=== PATIENT | male | born 1955 | race Caucasian/White ===

== ENCOUNTER → 2020-01-08 15:53 | Outpatient (CLI) | payer BC, SELFPAY ==
--- NOTE | 2020-01-08 16:11 | XR_ITS ---
PROCEDURE: XR CHEST PORTABLE CLINICAL HISTORY: COVID TESTING, C/O COUGH COMPARISON: CR CXR CHEST(2 VIEWS-NOT PORTABLE) from 12/30/2015 FINDINGS: The cardiomediastinal silhouette and pulmonary vascularity are within normal limits. The lungs are clear without infiltrates, suspicious nodules, or pleural effusions. No acute bony abnormalities. IMPRESSION: No acute findings. Dictated by: Ronny Rhodes MD 01/08/2020 17:16 Ronny Rhodes MD in [facility] 01/08/2020 17:16
[2020-01-10 15:31] LABS: Covid-19 Nasal PCR Sendout Lex Not Detected
== END ==
PROVIDERS: PCP Nurse Practitioner; Visit Provider Nurse Practitioner
DX: Z20.828 Contact with and (suspected) exposure to other viral communicable diseases (principal); R05 Cough
CPT/HCPCS: 71045; U0004

== ENCOUNTER → 2020-04-02 17:22 | Outpatient (CLI) | payer BC, SELFPAY ==
--- NOTE | 2020-04-02 17:36 | XR_ITS ---
PROCEDURE: XR CHEST PORTABLE CLINICAL HISTORY: COVID COMPARISON: CR CXR CHEST(2 VIEWS-NOT PORTABLE) from 12/30/2015 CR XR CHEST PORTABLE from 01/08/2020 FINDINGS: Normal heart size. Left is somewhat prominent and may be related to pulmonary vessels as the patient is slightly rotated. The lungs are clear without infiltrates, suspicious nodules, or pleural effusions. No acute bony abnormalities. IMPRESSION: No acute findings. Dictated by: Ronny Rhodes MD 04/02/2020 18:22 Ronny Rhodes MD in [facility] 04/02/2020 18:22
[2020-04-02 18:14] LABS: Basophils # 0.1 K/mm3 (0-0.2); Eosinophils % 9.9 % (0.1-12.0); Hematocrit 50.1 % (42.0-52.0); Hemoglobin 16.9 g/dL (14.1-18.0); Lymphocytes # 2.5 K/mm3 (0.7-4.5); Lymphocytes % 24.5 % (10-50); Mean Corpuscular HGB Conc 33.7 g/dL (31.8-35.4); Mean Corpuscular Hemoglobin 31.8 pg (27.0-31.2); Mean Corpuscular Volume 94.4 fl (80-94); Monocytes # 0.5 K/mm3 (0.1-1.0); Monocytes % 5.2 % (1.7-9.3); Neutrophils # 6.1 K/mm3 (1.8-7.8); Neutrophils % 59.3 % (37.0-80.0); Platelet Count 263 K/mm3 (142-424); Red Blood Count 5.31 M/mm3 (4.60-6.20); Red Cell Distribution Width 13.5 % (11.5-17.5); White Blood Count 10.3 K/mm3 (4.8-10.8)
[2020-04-04 14:06] LABS: Covid-19 Nasal PCR Sendout Lex Not Detected
== END ==
PROVIDERS: PCP Nurse Practitioner; Visit Provider Nurse Practitioner
DX: Z03.818 Encounter for observation for suspected exposure to other biological agents ruled out (principal)
CPT/HCPCS: 36415; 71045; 85025; U0004

== ENCOUNTER → 2020-06-14 15:16 | Outpatient (CLI) | payer BC, SELFPAY ==
[2020-06-14 17:15] LABS: Basophils # 0.1 K/mm3 (0-0.2); Basophils % 0.8 % (0.1-2.0); Eosinophils # 0.3 K/mm3 (0.0-0.4); Eosinophils % 3.3 % (0.1-12.0); Hematocrit 43.6 % (42.0-52.0); Hemoglobin 14.4 g/dL (14.1-18.0); Lymphocytes # 2.4 K/mm3 (0.7-4.5); Lymphocytes % 24.6 % (10-50); Mean Corpuscular Hemoglobin 30.3 pg (27.0-31.2); Mean Corpuscular Volume 91.7 fl (80-94); Mean Platelet Volume 7.8 fl (7.4-10.4); Monocytes # 0.6 K/mm3 (0.1-1.0); Neutrophils # 6.4 K/mm3 (1.8-7.8); Neutrophils % 65.3 % (37.0-80.0); Platelet Count 310 K/mm3 (142-424); Red Blood Count 4.76 M/mm3 (4.60-6.20); Red Cell Distribution Width 12.6 % (11.5-17.5); White Blood Count 9.7 K/mm3 (4.8-10.8)
== END ==
PROVIDERS: PCP Nurse Practitioner; Visit Provider Nurse Practitioner
DX: Z20.822 Contact with and (suspected) exposure to COVID-19 (principal)
CPT/HCPCS: 36415; 85025; U0003

== ENCOUNTER 2020-11-11 04:07 | Observation (INO) | payer BC, SELFPAY ==
[2020-11-11] VITALS (13 sets, daily range): BP systolic 97–163; BP diastolic 45–93; PULSE 51–69; RESP 15–23; TEMP 36.3–36.7; O2SAT 91–97; BMI 40.6; BMI 40.8
--- NOTE | 2020-11-11 04:08 | XR_ITS ---
PROCEDURE INFORMATION: Exam: XR Chest Exam date and time: 11/11/2020 4:08 AM Age: 65 years old Clinical indication: Other: Weakness; Additional info: Dizzy TECHNIQUE: Imaging protocol: XR of the chest. Views: 1 view. COMPARISON: CR XR CHEST PORTABLE 04/02/2020 5:56 PM FINDINGS: Lungs: Unremarkable. No consolidation. Pleural spaces: Unremarkable. No pleural effusion. No pneumothorax. Heart/Mediastinum: Unremarkable. No cardiomegaly. Bones/joints: Unremarkable. IMPRESSION: No acute findings.
--- NOTE | 2020-11-11 04:16 | ECG_ITS ---
APPROVED REPORT Exam: Resting ECG HR:56 bpm ECG Measurements Heart Rate 56 AXES OR 138 P 16 QRSd 98 QRS 33 QT 462 T 55 QTc 445 Conclusion Sinus bradycardia with occasional premature ventricular complexes Otherwise normal ECG Electronically signed by : Cleveland Loyola, 11/11/2020 22:09:43
--- NOTE | 2020-11-11 04:34 | CT_ITS ---
PROCEDURE INFORMATION: Exam: CT Angiography Neck With Contrast Exam date and time: 11/11/2020 4:34 AM Age: 65 years old Clinical indication: Dizziness and giddiness; Patient HX: Weakness; Additional info: Dizzy TECHNIQUE: Imaging protocol: Computed tomography angiography of the neck with contrast. 3D rendering (Not supervised by radiologist): MIP and/or 3D reconstructed images were created by the technologist. Radiation optimization: All CT scans at this facility use at least one of these dose optimization techniques: automated exposure control; mA and/or kV adjustment per patient size (includes targeted exams where dose is matched to clinical indication); or iterative reconstruction. Contrast material: ISOVUE 370; Contrast volume: 100 ml; Contrast route: INTRAVENOUS (IV); COMPARISON: CT HEAD/BRAIN WO CON 11/11/2020 5:14 AM FINDINGS: Right common carotid artery: No high-grade stenosis, occluding thrombus, dissection or aneurysm. Right internal carotid artery: There are atherosclerotic calcifications within the right carotid bulb/proximal ICA resulting in just under 50% stenosis: There is no high-grade stenosis, occluding thrombus or dissection. Right external carotid artery: No high-grade stenosis, occluding thrombus, dissection or aneurysm. Left common carotid artery: No high-grade stenosis, occluding thrombus, dissection or aneurysm. Left internal carotid artery: There are atherosclerotic calcifications within the left carotid bulb/proximal ICA resulting in less than 50% stenosis: There is no high-grade stenosis, occluding thrombus or dissection. Left external carotid artery: No high-grade stenosis, occluding thrombus, dissection or aneurysm. 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 Above this, the more distal aspect does reconstitute from what appears to be collateral flow via the anterior inferior cerebellar artery. Left vertebral artery: The left vertebral artery is dominant and patent from its origin to the basilar artery. Aorta: There is the usual aortic arch configuration and no arch aneurysm or dissection. Soft tissues: Normal. No significant soft tissue swelling. Bones/joints: No acute fracture. Lungs: There is mild centrilobular emphysema and dependent atelectasis within the lung apices. IMPRESSION: 1. 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 Above this, the more distal aspect near the basilar artery reconstitutes via collateral flow from what appears to be the anterior inferior cerebellar artery. 2. Atherosclerotic calcifications within both carotid bulbs and proximal ICA's resulting in less than 50% stenosis. 3. Mild centrilobular emphysema and dependent atelectasis in the lung apices. REFERENCES: NASCET CRITERIA. The degree of internal carotid artery stenosis is based on NASCET criteria. Normal is no stenosis. Mild is less than 50% stenosis. Moderate is 50-69% stenosis. Severe is 70% to 99% stenosis. Total occlusion is no detectable patent lumen.
--- NOTE | 2020-11-11 04:34 | CT_ITS ---
PROCEDURE INFORMATION: Exam: CT Head Without Contrast Exam date and time: 11/11/2020 4:34 AM Age: 65 years old Clinical indication: Patient HX: General weakness; Additional info: Dizzy TECHNIQUE: Imaging protocol: Computed tomography of the head without contrast. Radiation optimization: All CT scans at this facility use at least one of these dose optimization techniques: automated exposure control; mA and/or kV adjustment per patient size (includes targeted exams where dose is matched to clinical indication); or iterative reconstruction. COMPARISON: No relevant prior studies available. FINDINGS: Brain: Normal. No hemorrhage. Unremarkable white matter. No mass effect. Cerebral ventricles: No ventriculomegaly. Paranasal sinuses: Diffuse ethmoidal sinusitis is noted. Mucoperiosteal thickening in the sphenoid and bilateral maxillary sinuses are also noted. Mastoid air cells: Visualized mastoid air cells are well aerated. Bones/joints: Unremarkable. No acute fracture. Soft tissues: Unremarkable. IMPRESSION: No acute intracranial process noted. Daniels sinusitis.
[2020-11-11 04:53] LABS: Alanine Aminotransferase 29 U/L (12-78); Albumin/Globulin Ratio 1.3 (1.1-1.8); Alkaline Phosphatase 101 U/L (38-126); Anion Gap 10.5 mEq/L (5-15); Aspartate Amino Transferase 27 U/L (17-59); Bilirubin,Total 0.5 mg/dl (0.2-1.3); Blood Urea Nitrogen 21 mg/dl (9-20); Calcium 8.6 mg/dl (8.4-10.2); Carbon Dioxide 26 mmol/L (22.0-30.0); Chloride 106 mmol/L (98-107); Creatinine Clearance Estimated 138 mL/min (50-200); Estimated Glomerular Filt Rate 75 ml/min (>60); GFR (African American) 90 ML/MIN (>60); Globulin 3.2 g/dL (1.3-3.2); Glucose 165 mg/dl (74-100); Potassium 3.5 mmoL/L (3.5-5.1); Sodium 139 mmol/L (136-145); Total Protein,Serum 7.2 g/dl (6.3-8.2)
[2020-11-11 04:54] LABS: Lactic Acid 1.5 mmol/L (0.7-2.1)
--- NOTE | 2020-11-11 04:55 | PC.NURSE ---
Pt returned from rad.
[2020-11-11 04:58] LABS: C-Reactive Protein 6.3 mg/L (0-4)
[2020-11-11 05:02] LABS: Basophils # 0.1 K/mm3 (0-0.2); Basophils % 0.6 % (0.1-2.0); Eosinophils # 0.2 K/mm3 (0.0-0.4); Eosinophils % 2.1 % (0.1-12.0); Hematocrit 40.7 % (42.0-52.0); Lymphocytes # 2.9 K/mm3 (0.7-4.5); Lymphocytes % 30.7 % (10-50); Mean Corpuscular HGB Conc 34.3 g/dL (31.8-35.4); Mean Corpuscular Hemoglobin 30.6 pg (27.0-31.2); Mean Corpuscular Volume 89.2 fl (80-94); Mean Platelet Volume 7.7 fl (7.4-10.4); Monocytes # 0.4 K/mm3 (0.1-1.0); Monocytes % 4.2 % (1.7-9.3); Neutrophils # 5.9 K/mm3 (1.8-7.8); Neutrophils % 62.3 % (37.0-80.0); Platelet Count 252 K/mm3 (142-424); Red Blood Count 4.56 M/mm3 (4.60-6.20); Red Cell Distribution Width 13.5 % (11.5-17.5); White Blood Count 9.4 K/mm3 (4.8-10.8)
--- NOTE | 2020-11-11 05:02 | CT_ITS ---
PROCEDURE INFORMATION: Exam: CT Angiography Head With Contrast, Arteriography Exam date and time: 11/11/2020 5:02 AM Age: 65 years old Clinical indication: Dizziness and giddiness and weakness; Patient HX: Dizziness, weakness; Additional info: Dizzy TECHNIQUE: Imaging protocol: Computed tomography angiography of the head with contrast. Exam focused on the arteries. 3D rendering (Not supervised by radiologist): MIP and/or 3D reconstructed images were created by the technologist. Radiation optimization: All CT scans at this facility use at least one of these dose optimization techniques: automated exposure control; mA and/or kV adjustment per patient size (includes targeted exams where dose is matched to clinical indication); or iterative reconstruction. Contrast material: ISOVUE 370; Contrast volume: 100 ml; Contrast route: INTRAVENOUS (IV); COMPARISON: CT HEAD/BRAIN WO CON 11/11/2020 5:14 AM FINDINGS: ANTERIOR CIRCULATION: Right internal carotid artery: There are atherosclerotic calcifications within the cavernous right internal carotid artery but no significant high-grade stenosis, thrombus, dissection or aneurysm. Right middle cerebral artery: No high-grade stenosis, occluding thrombus, dissection or aneurysm. Right anterior cerebral artery: No high-grade stenosis, occluding thrombus, dissection or aneurysm. Left internal carotid artery: There are atherosclerotic calcifications within the cavernous left internal carotid artery but no high-grade stenosis, occluding thrombus or dissection. Left middle cerebral artery: No high-grade stenosis, occluding thrombus, dissection or aneurysm. Left anterior cerebral artery: No high-grade stenosis, occluding thrombus, dissection or aneurysm. POSTERIOR CIRCULATION: Right vertebral artery: No high-grade stenosis, occluding thrombus, dissection or aneurysm. Left vertebral artery: No high-grade stenosis, occluding thrombus, dissection or aneurysm. Basilar artery: No high-grade stenosis, occluding thrombus, dissection or aneurysm. Right posterior cerebral artery: No high-grade stenosis, occluding thrombus, dissection or aneurysm. Left posterior cerebral artery: No high-grade stenosis, occluding thrombus, dissection or aneurysm. Right posterior communicating artery: There is a patent right PCOM. No high-grade stenosis, occluding thrombus dissection or aneurysm. Left posterior communicating artery: There is a patent left PCOM. No high-grade stenosis, occluding thrombus, dissection or aneurysm. Brain: No definite mass, mass effect, or midline shift. Cerebral ventricles: No ventriculomegaly. Bones/joints: Unremarkable. No acute fracture. Soft tissues: Unremarkable. Paranasal sinuses: There is mucosal thickening within the ethmoid air cells, sphenoid sinuses and maxillary sinuses. There is a large retention cyst versus polyp in the floor of the left maxillary sinus. IMPRESSION: 1. No high-grade stenosis, occluding thrombus, dissection or aneurysm identified within the intracranial circulation. 2. Sinusitis.
[2020-11-11 05:12] LABS: Procalcitonin 0.091 ng/mL (0.0-2.0)
[2020-11-11 05:22] LABS: Troponin I < 0.01 ng/ml (0.00-0.034)
--- NOTE | 2020-11-11 05:22 | PC.NURSE ---
pt with rad.
[2020-11-11 05:28] LABS: Erythrocyte Sedimentation Rate 26 mm/hr (0-20)
[2020-11-11 06:21] LABS: Microscopic, Urine URINE MICROSCOPIC (MICROSCOPIC)
[2020-11-11 06:22] LABS: Appearance,Urine CLEAR (Clear); Bilirubin,Urine Negative (Negative); Blood, Urine TRACE-L (Negative); Color,Urine YELLOW (Yellow); Glucose,Urine (UA) Negative (Negative); Ketones,Urine Negative (Negative); Leukocyte Esterase,Urine Negative (Negative); Nitrate,Urine Negative (Negative); Protein,Urine 2+ (Negative); Specific Gravity, Urine >= 1.030 (1.005-1.030); Urobilinogen,Urine 0.2 EU/dl (0.2)
[2020-11-11 06:29] LABS: Bacteria,Urine Trace /lpf; Mucus,Urine 1+ /lpf; Squamous Epithelial Cell,Urine Occasional #/hpf (0-5); WBC,Urine Occasional #/hpf (0-3)
--- NOTE | 2020-11-11 06:36 | HMH.EDDIZZ ---
ED Disposition Clinical Impression: Vertigo, Bradycardia Acute sinusitis Qualifiers: Sinusitis location: unspecified location Recurrence: not specified as recurrent Qualified Code(s): J01.90 - Acute sinusitis, unspecified Disposition: Admitted as Observation Condition on Discharge: Good - Critical Care Critical Care Time: No Attestation: On 11/11/20, the high probability of a clinically significant, sudden or life threatening deterioration of the following system(s) required my full and direct attention, intervention and personal management. The time I documented below is in addition to time spent performing reported procedures but includes the following listed in this critical care notation. Medical Decision Making - Medical Records Medical records reviewed: Yes: I reviewed the patient's medical records. - Александр Inquiry Pt receiving controlled substance: No Vital Signs: 11/11/20 04:07 11/11/20 04:30 11/11/20 05:00 Temperature 97.4 F L Temperature Source Oral Pulse Rate 57 L 60 Pulse Rate [Right Radial] 58 L Respiratory Rate 21 16 17 Blood Pressure 97/45 L 114/48 L Blood Pressure [Right Arm] 139/77 Blood Pressure Mean Blood Pressure Mean [Right Arm] 97 Blood Pressure Source [Right Arm] Automatic Cuff Blood Pressure Position [Right Arm] Sitting 02 Sat by Pulse Oximetry 91 L 92 L 91 L Oxygen Delivery Method Room Air 11/11/20 05:30 11/11/20 05:32 Temperature Temperature Source Pulse Rate 51 L 51 L Pulse Rate [Right Radial] Respiratory Rate 16 18 Blood Pressure 141/68 H 141/68 H Blood Pressure [Right Arm] Blood Pressure Mean 92 Blood Pressure Mean [Right Arm] Blood Pressure Source [Right Arm] Blood Pressure Position [Right Arm] 02 Sat by Pulse Oximetry 93 L 93 L Oxygen Delivery Method - Lab Data Lab results reviewed: Yes: I reviewed the patient's lab results. Lab Results 11/11/20 04:12: WBC 9.4, RBC 4.56 L, Hgb 14.0 L, Hct 40.7 L, MCV 89.2, MCH 30.6, MCHC 34.3, RDW 13.5, Plt Count 252, MPV 7.7, Neut % (Auto) 62.3, Lymph % (Auto) 30.7, [place] % (Auto) 4.2, Eos % (Auto) 2.1, Baso % (Auto) 0.6, Neut # (Auto) 5.9, Lymph # (Auto) 2.9, [place] # (Auto) 0.4, Eos # (Auto) 0.2, Baso # (Auto) 0.1 11/11/20 04:12: Sodium 139, Potassium 3.5, Chloride 106, Carbon Dioxide 26, Anion Gap 10.5, BUN 21 H, Creatinine 1.00, Estimated Creat Clear 138, Estimated GFR 75, Est GFR ( Amer) 90, Glucose 165 H, Calcium 8.6, Total Bilirubin 0.5, AST 27, ALT 29, Alkaline Phosphatase 101, Troponin I < 0.01, C-Reactive Protein 6.3 H, Total Protein 7.2, Albumin 4.0, Globulin 3.2, Albumin/Globulin Ratio 1.3 11/11/20 04:12: ESR 26 H 11/11/20 04:12: Lactate 1.5 11/11/20 04:12: Procalcitonin 0.091 11/11/20 06:18: Urine Color Yellow, Urine Appearance Clear, Urine pH 6.0, Ur Specific Elizabeth >= 1.030, Urine Protein 2+, Urine Glucose (UA) Negative, Urine Ketones Negative, Urine Blood Trace-l, Urine Nitrate Negative, Urine Bilirubin Negative, Urine Urobilinogen 0.2, Ur Leukocyte Esterase Negative, Urine WBC Occasional, Ur Squamous Epith Cells Occasional, Urine Bacteria Trace, Urine Mucus 1+ 11/11/20 06:53: SARS-CoV-2 (PCR) Not detected, Influenza A Untype (PCR) Not detected, Influenza Type B (PCR) Not detected Result diagrams: 11/11/20 04:12 11/11/20 04:12 Orders (Tests/Meds): ED MEDICATIONS Discontinued Medications Generic Name Dose Route Start Last Admin Trade Name Freq PRN Reason Stop Dose Admin Sodium Chloride 1,000 mls @ 999 mls/hr 11/11/20 04:45 Sod Chlor 0.9% 1000ml Bag IV 11/11/20 05:45 .Q1H1M HERSON Iopamidol 100 ml 11/11/20 06:19 11/11/20 06:20 Iopamidol-370 (76%);100ml Bottle IV 11/11/20 06:20 100 ml ONCE ONE Administration Sodium Chloride 50 ml 11/11/20 06:19 11/11/20 06:19 0.9 % Sodium Chloride 50 Ml Vial IV 11/11/20 06:20 50 ml ONCE ONE Administration Sodium Chloride 10 ml 11/11/20 06:19 11/11/20 06:19 Sodium Chloride 0.9% 10ml Syr (Rad
[2020-11-11 06:59] LABS: Coronavirus 19, PCR Not Detected (NotDetected); Influenza A, PCR Not Detected (NotDetected); Influenza B, PCR Not Detected (NotDetected)
--- NOTE | 2020-11-11 07:40 | PC.NURSE ---
notified care management of admission, spoke with j carlos
--- NOTE | 2020-11-11 08:15 | PC.NURSE ---
miladys nguyenn at [facility]
--- NOTE | 2020-11-11 08:46 | PC.NURSE ---
Report given to Angelica HOWELL
--- NOTE | 2020-11-11 08:49 | HMH.PHAINT ---
MEDICATION RECONCILIATION COMPLETED USING LIST FROM MD OFFICE AND EXTERNAL PHARMACY FILL HX
[2020-11-11 09:02] LABS: Troponin I < 0.01 ng/ml (0.00-0.034)
--- NOTE | 2020-11-11 09:07 | HMH.HP ---
*Admission Date: 11/11/20 *Chief complaint: dizziness *History of present illness: Mr. Mckeon is a 65-year-old male patient with a history of CVA in 2013, hypertension, allergic rhinitis, hiatal hernia, vitamin B12 deficiency, and previous tobacco use disorder, and COPD who presented to [facility] emergency room via EMS after experiencing dizziness associated with nausea and vomiting at home. Patient states he was awake at 2 AM at which time he became dizzy. He states he has these spells infrequently. They normally last 2 to 3 minutes. This event continued and thus he called EMS. When ambulating to let them into his home he experienced nausea and did vomit. He denies chest pain and shortness of breath. In the emergency room he received a liter of IV fluids. He also received 4 mg of Zofran in route to the hospital. He had a CTA of the head with the following results: IMPRESSION: 1. 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 Above this, the more distal aspect near the basilar artery reconstitutes via collateral flow from what appears to be the anterior inferior cerebellar artery. 2. Atherosclerotic calcifications within both carotid bulbs and proximal ICA's resulting in less than 50% stenosis. 3. Mild centrilobular emphysema and dependent atelectasis in the lung apices. Chest x-ray showed no acute findings. Troponin I is negative x2. Electrolytes are normal and kidney function is good. At the time of this exam patient is lying on his side comfortably. He states as long as he lies down he is not dizzy. He turns from side to side on the stretcher without dizziness as well. Patient was noted to have a slow heart rate with dizziness and will thus be admitted with a cardiology consult. [facility] History Medical History: Reports:: Chronic Obstructive Pulmonary Disease (COPD), Cerebrovascular Accident Denies:: Atherosclerotic Heart Disease, Atrial Fibrillation *Have you ever received a pneumonia vaccine?: No *Have you received a flu vaccine this season?: No Other Medical History: Reports: Sinus Problems Other Surgeries: Yes: Sinus Surgery - *Social History Smoking Status: Former smoker Alcohol Intake: never *Occupational Status:: employed Housing: house Household Members: none *Travel in the last 8 weeks: None Family Hx:: Other Comment: His father at the age of 62 and had emphysema. His mother at the age of 80. Review of Systems - Constitutional Denies fever(s), Denies lack of energy - Eyes Reports change in vision (He describes seeing double with these dizzy episodes) - ENT Reports dizziness, Reports nasal congestion (On the left side), Denies ear pain, Denies nosebleed, Denies nasal discharge - *Cardiovascular Denies chest pain, Denies shortness of breath, Denies leg swelling - *Respiratory Denies chest congestion, Denies cough, Denies shortness of breath - *Gastrointestinal Reports nausea, Reports vomiting, Denies abdominal pain, Denies bright, red blood in stools, Denies black, tarry stools - *Genitourinary Denies difficulty urinating - *Musculoskeletal Denies abnormal walking - *Neurologic Reports dizziness, Denies abnormal speech, Denies localized weakness, Denies headache(s), Denies seizure-like activity Meds Home Medications Medication Instructions Recorded Confirmed Type Amlodipine Besylate [Amlodipine 10 mg PO DAILY 11/11/20 11/11/20 History 10mg Tab] Lisinopril/Hydrochlorothiazide 1 tab PO DAILY 11/11/20 11/11/20 History [Lisinopril-Hctz 20-25 mg Tab*] Allergies Allergy/AdvReac Type Severity Reaction Status Date / Time No Known Allergies Allergy Unverified 11/11/20 09:21 Exam Vital signs and Labs for Last 24 Hours: Temp Pulse Resp BP Pulse Ox 97.4 F L 59 L 19 153/78 H 95 11/11/20 08:58 11/11/20 08:58 11/11/20 08:58 11/11/20 08:58 11/11/20
--- NOTE | 2020-11-11 09:16 | CA_ITS ---
APPROVED REPORT EXAM: Comprehensive 2D, Doppler, and color-flow Echocardiogram Brancher: Amelie Girard, RCS, RVS Ht: 6 ft 0 in Wt: 301lbs BSA: 2.53 BP: 000/00 mmHg Indications: Murmur, HTN, Bradycardia, Hx-CVA-2012, ex-smoker, COPD 2D Dimensions IVSd 1.04 cm M: 0.6-1.2 LVEF (Visual) 57.80 % PWd 0.99 cm M: 0.6 - 1.2 LA Volume 123.00 mL LVDd 5.49 cm M: 4.2 - 5.9 LA Volume Index 48.61 mL/m2 (M/F) 16-34 LVDs 3.80 cm M: 2.5 - 4.0 Aortic Root 3.42 cm M: 3.1 - 3.7 Left Atrium 4.53 cm M: 3.0 - 4.0 LVOT 2.00 cm (M/F) 1.5-2.5 M-Mode Dimensions LA Diam 4.57 cm (1.9-4.0) Ao Diam 3.93 cm (2.0-3.7) EPSs 0.57 cm TAPSE 3.01 (<1.7) LV Diastology E Decel Time 167.00 (160-240 msec) E/A Ratio 1.42 MED E' 11.10 (< 7 cm/sec) MED A' 11.40 cm/s E'/MED E' Ratio 7.42 (>14) LAT E' 10.00 (<10 cm/sec) LAT A' 10.00 cm/s E/LAT E' Ratio 8.24 (>14) Aortic Valve LVOT Max 107.00 (70-110 cm/s) LVOT VTI 26.04 cm AoV Peak Marshall. 290.00 (50-130 cm/s) AI PHT 362.00 ms AO Peak GR. 33.70 mmHg AO Mean GR. 19.20 (<5 mmHg) AO VTI 69.65 (18-25 cm) MARGARITO (VTI) 1.20 (2.5-4.5 cm2) Mitral Valve MV A Velocity 58.00 (40-130 cm/s) E/A Ratio 1.42 MV Decel. Time 167.00 (160-240 ms) Tricuspid Valve TR P. Velocity 258.00 cm/s RAP Estimate 10.00 mmHg RVSP 36.50 mmHg Left Ventricle Left atrium is mildly enlarged, left ventricle is normal size, mild concentric left ventricular hypertrophy, visually estimated ejection fraction 55% with no regional wall motion abnormality. Diastolic parameters are inconclusive. Right Ventricle Right atrium and right ventricle are mildly enlarged with normal contractility. Aortic Valve Aortic valve is thickened and calcified with restriction in the leaflet mobility, the mean gradient across valve is 20 mmHg, valve area is 1.41 cm, represents mild aortic stenosis, there is no significant aortic insufficiency. Mitral Valve Mitral valve leaflets are minimally thickened, there is mild mitral regurgitation. Tricuspid Valve Tricuspid grossly normal, there is mild tricuspid regurgitation, tricuspid regurgitation jet velocity is inadequate for calculation of the right ventricular systolic pressure. Pulmonic Valve Pulmonic valve is poorly visualized. Great Vessels Aortic root is normal size. Pericardium No significant pericardial effusion noted. Conclusion 1. Technically difficult study, mild biatrial enlargement, normal left ventricular size, mild concentric left ventricular hypertrophy, visually estimated ejection fraction 55% with no regional wall motion abnormality, diastolic parameters are inconclusive. 2. Thickened and calcified aortic valve with mean gradient across valve of 20 mmHg, valve area is 1.41 cm, represents mild aortic stenosis, there is no significant aortic insufficiency. 3. Mild mitral and tricuspid regurgitation. 4. No significant pericardial effusion noted. Electronically signed by : Rony Livingston, 11/11/2020 21:53:49
--- NOTE | 2020-11-11 09:18 | P.CONPHA_ITS ---
[facility] Pharmacy VTE Monitoring - Patient Demographics Admission date: 11/11/20 Report Date: 11/11/20 Time: 09:18 Allergies/Adverse Reactions: Patient Allergies NO KNOWN ALLERGIES - NKA Allergy (Mild, Uncoded 04/13/17 15:39) Height: 1.83 m Weight: 136.786 kg Patient Problems: Current Active Problems Vertigo (Acute) Acute sinusitis (Acute) Bradycardia (Acute) - VTE Risk Labs: VTE Related Lab Results Hgb 14.0 g/dL (14.1-18.0) L 11/11/20 04:12 Hct 40.7 % (42.0-52.0) L 11/11/20 04:12 Plt Count 252 K/mm3 (142-424) 11/11/20 04:12 BUN 21 mg/dl (9-20) H 11/11/20 04:12 Creatinine 1.00 mg/dl (0.66-1.25) 11/11/20 04:12 Estimated Creat Clear 138 mL/min (50-200) 11/11/20 04:12 - Prophylaxis VTE Prophylaxis Ordered?: Yes Types of VTE Prophylaxis: TEDS Knee High Location of Applied Device: Bilateral Lower Extremeties
[2020-11-11 11:03] LABS: Troponin I < 0.01 ng/ml (0.00-0.034)
--- NOTE | 2020-11-11 12:43 | HMH.CNCARD ---
History of Present Illness Consult date: 11/11/20 Requesting physician: Tod Burr Chief complaint: dizziness History of present illness: This is a 65-year-old white gentleman who was admitted to the hospital with dizziness. The patient states that he woke up around 2 AM this morning with profound dizziness. He states that his dizziness was really severe and usually resolves in about 2 to 3 minutes but this persisted. He states that he called EMS because of the persistent dizziness. When he got up to walk to the door to let EMS and the patient had sudden onset of nausea and vomiting. He states that the ambulance ride made him even more nauseous and made him vomit even more. He states that when he lies flat the dizziness resolved. He denies any chest pain or pressure. He denies any shortness of breath or edema. He denies any fever, chills, diarrhea, PND or orthopnea. The patient has ruled out for an ND. He states that he had an episode like this approximately 2 or 3 months ago but the dizziness only lasted about 2 or 3 minutes and then resolved and never recurred again. The patient states that now his dizziness has completely resolved. He is able to walk to the bathroom without being dizzy and without having any nausea or vomiting. When the patient arrived at the hospital, blood pressure was on the lower side with a systolic blood pressure in the 90s. His heart rate was in the 50s. [facility] History I have reviewed the patient's past medical history: Yes Medical History: Reports:: Chronic Obstructive Pulmonary Disease (COPD), Cerebrovascular Accident, Hypertension Denies:: Atherosclerotic Heart Disease, Atrial Fibrillation, Diabetes Mellitus Type 1, Diabetes Mellitus Type 2 *Have you ever received a pneumonia vaccine?: No *Have you received a flu vaccine this season?: Yes Other Medical History: Reports: Sinus Problems Other Surgeries: Yes: Sinus Surgery - *Social History Smoking Status: Former smoker Alcohol Intake: never *Occupational Status:: employed Housing: house Household Members: none *Travel in the last 8 weeks: None Family Hx:: Other Meds Home Medications Medication Instructions Recorded Confirmed Type Amlodipine Besylate [Amlodipine 10 mg PO DAILY 11/11/20 11/11/20 History 10mg Tab] Lisinopril/Hydrochlorothiazide 1 tab PO DAILY 11/11/20 11/11/20 History [Lisinopril-Hctz 20-25 mg Tab*] Allergies Allergy/AdvReac Type Severity Reaction Status Date / Time No Known Allergies Allergy Unverified 11/11/20 09:21 Exam Vital signs and Labs for Last 24 Hours: Temp Pulse Resp BP Pulse Ox 97.9 F 56 L 18 154/63 H 97 11/11/20 09:07 11/11/20 09:07 11/11/20 09:07 11/11/20 09:07 11/11/20 09:07 Laboratory Results - last 24 hr 11/11/20 04:12: WBC 9.4, RBC 4.56 L, Hgb 14.0 L, Hct 40.7 L, MCV 89.2, MCH 30.6, MCHC 34.3, RDW 13.5, Plt Count 252, MPV 7.7, Neut % (Auto) 62.3, Lymph % (Auto) 30.7, [place] % (Auto) 4.2, Eos % (Auto) 2.1, Baso % (Auto) 0.6, Neut # (Auto) 5.9, Lymph # (Auto) 2.9, [place] # (Auto) 0.4, Eos # (Auto) 0.2, Baso # (Auto) 0.1 11/11/20 04:12: Sodium 139, Potassium 3.5, Chloride 106, Carbon Dioxide 26, Anion Gap 10.5, BUN 21 H, Creatinine 1.00, Estimated Creat Clear 138, Estimated GFR 75, Est GFR ( Amer) 90, Glucose 165 H, Calcium 8.6, Total Bilirubin 0.5, AST 27, ALT 29, Alkaline Phosphatase 101, Troponin I < 0.01, C-Reactive Protein 6.3 H, Total Protein 7.2, Albumin 4.0, Globulin 3.2, Albumin/Globulin Ratio 1.3 11/11/20 04:12: ESR 26 H 11/11/20 04:12: Lactate 1.5 11/11/20 04:12: Procalcitonin 0.091 11/11/20 06:18: Urine Color Yellow, Urine Appearance Clear, Urine pH 6.0, Ur Specific [place] >= 1.030, Urine Protein 2+, Urine Glucose (UA) Negative, Urine Ketones Negative, Urine Blood Trace-l, Urine Nitrate Negative, Urine Bilirubin Negative, Urine Urobilinogen 0.2, Ur Leukocyte Esterase Negative, Urine WBC Occasional, Ur Squamous Epith Cells Occasional, Urine Bacteria Trace, Urine M
--- NOTE | 2020-11-11 16:33 | PC.NURSE ---
Zakia Matias APRN notified of pt refusing to do MRI.
--- NOTE | 2020-11-11 17:12 | HMH.ACPN2 ---
Internal Medicine - PN: Subj *Date: 11/11/20 *Time: 17:12 Interval history: Upon review of the CTA showing problems with the vertebrobasilar system, I started Eliquis. See the cardiology note which also points in this direction. Exam Vital signs and Labs for Last 24 Hours: Temp Pulse Resp BP Pulse Ox 98.1 F 59 L 20 120/66 94 L 11/11/20 16:00 11/11/20 16:00 11/11/20 16:00 11/11/20 16:00 11/11/20 16:00 Laboratory Results - last 24 hr 11/11/20 04:12: WBC 9.4, RBC 4.56 L, Hgb 14.0 L, Hct 40.7 L, MCV 89.2, MCH 30.6, MCHC 34.3, RDW 13.5, Plt Count 252, MPV 7.7, Neut % (Auto) 62.3, Lymph % (Auto) 30.7, [place] % (Auto) 4.2, Eos % (Auto) 2.1, Baso % (Auto) 0.6, Neut # (Auto) 5.9, Lymph # (Auto) 2.9, [place] # (Auto) 0.4, Eos # (Auto) 0.2, Baso # (Auto) 0.1 11/11/20 04:12: Sodium 139, Potassium 3.5, Chloride 106, Carbon Dioxide 26, Anion Gap 10.5, BUN 21 H, Creatinine 1.00, Estimated Creat Clear 138, Estimated GFR 75, Est GFR ( Amer) 90, Glucose 165 H, Calcium 8.6, Total Bilirubin 0.5, AST 27, ALT 29, Alkaline Phosphatase 101, Troponin I < 0.01, C-Reactive Protein 6.3 H, Total Protein 7.2, Albumin 4.0, Globulin 3.2, Albumin/Globulin Ratio 1.3 11/11/20 04:12: ESR 26 H 11/11/20 04:12: Lactate 1.5 11/11/20 04:12: Procalcitonin 0.091 11/11/20 06:18: Urine Color Yellow, Urine Appearance Clear, Urine pH 6.0, Ur Specific [place] >= 1.030, Urine Protein 2+, Urine Glucose (UA) Negative, Urine Ketones Negative, Urine Blood Trace-l, Urine Nitrate Negative, Urine Bilirubin Negative, Urine Urobilinogen 0.2, Ur Leukocyte Esterase Negative, Urine WBC Occasional, Ur Squamous Epith Cells Occasional, Urine Bacteria Trace, Urine Mucus 1+ 11/11/20 06:53: SARS-CoV-2 (PCR) Not detected, Influenza A Untype (PCR) Not detected, Influenza Type B (PCR) Not detected 11/11/20 08:02: Troponin I < 0.01 11/11/20 10:20: Troponin I < 0.01 I & O for Last 24 hours: Intake & Output 11/09/20 11/10/20 11/11/20 11/12/20 11:59 11:59 11:59 11:59 Intake Total 240 / 240 Output Total 600 / 600 Balance -360 / -360 Weight 301 lb 9 oz Assessment and Plan (1) Dizziness Status: Acute Category: Medical Code(s): R42 - Dizziness and giddiness (2) Vertebrobasilar insufficiency Status: Acute Category: Medical Code(s): G45.0 - Vertebro-basilar artery syndrome (3) Chronic panethmoidal sinusitis Status: Chronic Category: Medical Code(s): J32.2 - Chronic ethmoidal sinusitis (4) COPD (chronic obstructive pulmonary disease) Status: Acute Category: Medical Code(s): J44.9 - Chronic obstructive pulmonary disease, unspecified (5) History of CVA (cerebrovascular accident) without residual deficits Status: Acute Category: Medical Code(s): Z86.73 - Personal history of transient ischemic attack (TIA), and cerebral infarction without residual deficits (6) Bradycardia Status: Acute Category: Medical Code(s): R00.1 - Bradycardia, unspecified (7) Vertigo Status: Acute Category: Medical Code(s): R42 - Dizziness and giddiness (8) Nausea and vomiting Status: Acute Category: Medical Code(s): R11.2 - Nausea with vomiting, unspecified - Assessment and plan all Dx Assessment and Plan for all problems:: Eliquis initiated. After lipids are obtained in the morning we should start a statin.
--- NOTE | 2020-11-11 17:29 | PC.NURSE ---
Pt has slept most of this shift. Pt has had no c/o pain at all. Per last note, pt did refuse MRI d/t being claustrophobic. Pt stated they even gave me something for my nerves last time and it didn't help. . No other acute changes or complaints at this time, will continue to monitor.
--- NOTE | 2020-11-12 03:49 | PC.NURSE ---
PATIENT HAS BEEN PLEASANT AND HAS BEEN ABLE TO SLEEP COMFORTABLY THROUGHOUT THIS SHIFT. VSS. PT IS A&O X4. LUNGS REMAIN CTAB. CALL MILIAN WITHIN REACH. WILL CONTINUE TO MONITOR.
[2020-11-12 04:00] VITALS: BP 153/80; PULSE 58; RESP 18; TEMP 36.6; O2SAT 94
[2020-11-12 05:22] VITALS: BMI 40.2
[2020-11-12 07:16] LABS: Basophils # 0.1 K/mm3 (0-0.2); Basophils % 0.6 % (0.1-2.0); Eosinophils # 0.2 K/mm3 (0.0-0.4); Hematocrit 41.1 % (42.0-52.0); Hemoglobin 14.3 g/dL (14.1-18.0); Lymphocytes # 2.7 K/mm3 (0.7-4.5); Mean Corpuscular HGB Conc 34.9 g/dL (31.8-35.4); Mean Corpuscular Hemoglobin 30.5 pg (27.0-31.2); Mean Corpuscular Volume 87.5 fl (80-94); Monocytes # 0.5 K/mm3 (0.1-1.0); Neutrophils # 5.6 K/mm3 (1.8-7.8); Neutrophils % 62.4 % (37.0-80.0); Platelet Count 260 K/mm3 (142-424); Red Cell Distribution Width 13.6 % (11.5-17.5)
[2020-11-12 07:30] VITALS: BP 157/69; PULSE 66; RESP 18; TEMP 36.6; O2SAT 98
[2020-11-12 07:48] LABS: Anion Gap 9.1 mEq/L (5-15); Blood Urea Nitrogen 13 mg/dl (9-20); Calcium 8.8 mg/dl (8.4-10.2); Carbon Dioxide 30 mmol/L (22.0-30.0); Chloride 103 mmol/L (98-107); Creatinine Clearance Estimated 137 mL/min (50-200); Estimated Glomerular Filt Rate 75 ml/min (>60); GFR (African American) 90 ML/MIN (>60); Glucose 118 mg/dl (74-100); Potassium 4.1 mmoL/L (3.5-5.1); Sodium 138 mmol/L (136-145)
--- NOTE | 2020-11-12 08:20 | HMH.ACPN2 ---
Internal Medicine - PN: Subj *Date: 11/12/20 *Time: 08:20 Interval history: Patient states he feels 100% better and is ready to go home. He was to have an MRA of the head and the neck yesterday which she reviewed fused. He states he could not stay in a closed environment with MRI even with medication. He did sleep well. He has ambulated in the room without any dizziness. His vision is normal today. He is voiding QS and bowels have moved. CBC is normal today blood chemistries show normal electrolytes and renal function. Troponin I has been normal x3. Exam Vital signs and Labs for Last 24 Hours: Temp Pulse Resp BP Pulse Ox 98 F 66 18 157/69 H 98 11/12/20 07:30 11/12/20 07:30 11/12/20 07:30 11/12/20 07:30 11/12/20 07:30 Laboratory Results - last 24 hr 11/11/20 08:02: Troponin I < 0.01 11/11/20 10:20: Troponin I < 0.01 11/12/20 06:50: WBC 9.0, RBC 4.70, Hgb 14.3, Hct 41.1 L, MCV 87.5, MCH 30.5, MCHC 34.9, RDW 13.6, Plt Count 260, MPV 8.0, Neut % (Auto) 62.4, Lymph % (Auto) 30.0, [place] % (Auto) 5.0, Eos % (Auto) 2.0, Baso % (Auto) 0.6, Neut # (Auto) 5.6, Lymph # (Auto) 2.7, [place] # (Auto) 0.5, Eos # (Auto) 0.2, Baso # (Auto) 0.1 11/12/20 06:50: Sodium 138, Potassium 4.1, Chloride 103, Carbon Dioxide 30, Anion Gap 9.1, BUN 13 D, Creatinine 1.00, Estimated Creat Clear 137, Estimated GFR 75, Est GFR ( Amer) 90, Glucose 118 H, Calcium 8.8, Magnesium 2.0 I & O for Last 24 hours: Intake & Output 11/09/20 11/10/20 11/11/20 11/12/20 11:59 11:59 11:59 11:59 Intake Total 876 / 876 Output Total 600 / 600 Balance 276 / 276 Weight 301 lb 9 oz 297 lb 0.4 oz - Constitutional no acute distress - *Routine Respiratory Exam Present: CTA bilaterally (Anteriorly and posteriorly) - *Routine Cardiovascular Exam Present: RRR - *Routine Abdominal Exam Present: soft, normoactive bowel sounds, obese. Absent: tenderness - *Routine Extremities Exam Present: full ROM, pulses intact. Absent: edema, calf tenderness - *Routine Neurological Exam Present: alert, oriented X3 Assessment and Plan (1) Dizziness Status: Acute Category: Medical Code(s): R42 - Dizziness and giddiness (2) Vertebrobasilar insufficiency Status: Acute Category: Medical Code(s): G45.0 - Vertebro-basilar artery syndrome (3) Chronic panethmoidal sinusitis Status: Chronic Category: Medical Code(s): J32.2 - Chronic ethmoidal sinusitis (4) COPD (chronic obstructive pulmonary disease) Status: Acute Category: Medical Code(s): J44.9 - Chronic obstructive pulmonary disease, unspecified (5) History of CVA (cerebrovascular accident) without residual deficits Status: Acute Category: Medical Code(s): Z86.73 - Personal history of transient ischemic attack (TIA), and cerebral infarction without residual deficits (6) Bradycardia Status: Acute Category: Medical Code(s): R00.1 - Bradycardia, unspecified (7) Vertigo Status: Acute Category: Medical Code(s): R42 - Dizziness and giddiness (8) Nausea and vomiting Status: Acute Category: Medical Code(s): R11.2 - Nausea with vomiting, unspecified - Assessment and plan all Dx Assessment and Plan for all problems:: pt has been started on Eliquis. Probably home today with cardio recommendations
--- NOTE | 2020-11-12 08:27 | CA_ITS ---
APPROVED REPORT Grooving Lathe Tender: Na Martell RVT Study Quality: Good Indications: malignant htn Risk Factors Hypertension Obesity Smoking Renal Artery Doppler Origin (R) 155.5/ cm/sec Proximal (R) 133.7/ cm/sec Mid (R) 149.1/ cm/sec Distal (R) 187.8/ cm/sec Renal Aorta Ratio (R) 0.00 Segmental A. (R) 84.5/24.5 cm/sec RI: 0.71 Segmental A. Sup (R) 66.6/22.5 cm/sec Segmental A. Mid (R) 66.6/28.4 cm/sec Segmental A. Inf (R) 84.2/24.5 cm/sec Origin (L) 140.1/ cm/sec Proximal (L) 145.2/ cm/sec Mid (L) 146.5/ cm/sec Distal (L) 214.6/ cm/sec Renal Aorta Ratio (L) 0.00 Segmental A. (L) 123.4/45.0 cm/sec RI: 0.63 Segmental A. Sup (L) 123.4/45.0 cm/sec Segmental A. Mid (L) 97.7/29.6 cm/sec Segmental A. Inf (L) 60.5/20.9 cm/sec Renal Measurements Kidney Size (R) 10.6x8.4 cm Cortical Thickness (R) 1.5 cm Kidney Size (L) 10.5x9.5 cm Cortical Thickness (L) 1.4 cm Findings Study suggests greater than 60% stenosis of the bilateral renal arteries. Dilated renal pelvis seen in the left kidney, ? mild hydronephrosis or pelvic cyst. Conclusion Study suggests greater than 60% stenosis of the bilateral renal arteries. Dilated renal pelvis seen in the left kidney, ? mild hydronephrosis or pelvic cyst. Electronically signed by : Alejandra Heredia, 11/12/2020 16:36:43
[2020-11-12 08:43] LABS: Chol/HDL Ratio 5.3 (1-3.5); Cholesterol 174 mg/dl (140-200); HDL Cholesterol 33 mg/dl (40-60); Triglycerides 135 mg/dl (30-150); VLDL Cholesterol 27 mg/dL (0-40)
[2020-11-12 08:53] LABS: Direct LDL Cholesterol 117.76 mg/dL (100-129)
--- NOTE | 2020-11-12 09:32 | HMH.PNCARD ---
Subjective Date: 11/12/20 Time: 09:20 Principal diagnosis: dizziness Interval history: This is a 65-year-old white gentleman who was admitted to the hospital with dizziness. There was some concern that the patient could have VBI. He was supposed to go undergo an MRI of the brain yesterday but due to claustrophobia the patient was unable to complete the test. He was offered antianxiety medications in order to complete the test but the patient said that those did not work in the past to help him complete the test though he refused to have the test completed. This morning he states he is feeling much better and he is ready to go home. He denies any recurrence of the dizziness. He denies any chest pain or pressure. He denies any shortness of breath or edema. He denies any fever, chills, nausea, vomiting, diarrhea, PND or orthopnea. Exam Vital signs and Labs for Last 24 Hours: Temp Pulse Resp BP Pulse Ox 98 F 66 18 157/69 H 98 11/12/20 07:30 11/12/20 07:30 11/12/20 07:30 11/12/20 07:30 11/12/20 07:30 Laboratory Results - last 24 hr 11/11/20 10:20: Troponin I < 0.01 11/12/20 06:50: WBC 9.0, RBC 4.70, Hgb 14.3, Hct 41.1 L, MCV 87.5, MCH 30.5, MCHC 34.9, RDW 13.6, Plt Count 260, MPV 8.0, Neut % (Auto) 62.4, Lymph % (Auto) 30.0, [place] % (Auto) 5.0, Eos % (Auto) 2.0, Baso % (Auto) 0.6, Neut # (Auto) 5.6, Lymph # (Auto) 2.7, [place] # (Auto) 0.5, Eos # (Auto) 0.2, Baso # (Auto) 0.1 11/12/20 06:50: Sodium 138, Potassium 4.1, Chloride 103, Carbon Dioxide 30, Anion Gap 9.1, BUN 13 D, Creatinine 1.00, Estimated Creat Clear 137, Estimated GFR 75, Est GFR ( Amer) 90, Glucose 118 H, Calcium 8.8, Magnesium 2.0 11/12/20 06:50: Triglycerides 135, Cholesterol 174, LDL Cholesterol Direct 117.76, VLDL Cholesterol 27, HDL Cholesterol 33 L, Cholesterol/HDL Ratio 5.3 H I & O for Last 24 hours: Intake & Output 11/09/20 11/10/20 11/11/20 11/12/20 23:59 23:59 23:59 23:59 Intake Total 720 / 840 156 / 156 Output Total 600 / 600 0 / 0 Balance 120 / 240 156 / 156 Weight 301 lb 9 oz 297 lb 0.4 oz Narrative: Echo shows: 1. Technically difficult study, mild biatrial enlargement, normal left ventricular size, mild concentric left ventricular hypertrophy, visually estimated ejection fraction 55% with no regional wall motion abnormality, diastolic parameters are inconclusive. 2. Thickened and calcified aortic valve with mean gradient across valve of 20 mmHg, valve area is 1.41 cm, represents mild aortic stenosis, there is no significant aortic insufficiency. 3. Mild mitral and tricuspid regurgitation. 4. No significant pericardial effusion noted. - Constitutional no acute distress, morbidly obese - *Routine HEENT Exam Head: Present: normocephalic, atraumatic Eye: Present: EOMI, PERRL ENT: Present: mucous membranes moist - *Routine Neck Exam Present: supple, full ROM, normal carotid upstroke. Absent: JVD, carotid bruit, lymphadenopathy - *Routine Respiratory Exam Present: CTA bilaterally - *Routine Cardiovascular Exam Present: RRR, Normal S1, Normal S2. Absent: murmur - *Routine Abdominal Exam Present: soft, normoactive bowel sounds. Absent: tenderness, distended - *Routine Extremities Exam Present: full ROM, pulses intact, normal capillary refill. Absent: cyanosis, clubbing, edema - *Routine Skin Exam Present: intact, warm. Absent: erythema, rash - *Routine Neurological Exam Present: alert, oriented X3, CN II-XII intact. Absent: sensory deficit, motor deficit Progress Note: A&P (1) Dizziness Status: Acute (2) Vertebrobasilar insufficiency Status: Acute (3) Chronic panethmoidal sinusitis Status: Chronic (4) COPD (chronic obstructive pulmonary disease) Status: Acute (5) History of CVA (cerebrovascular accident) without residual deficits Status: Acute (6) Bradycardia Status: Acute (7) Vertigo Status: Acute (8) Nausea and vomiting Status: Acute (9) Vert
--- NOTE | 2020-11-16 15:26 | HMH.DCSUM ---
General - General Admission date:: 11/11/20 Discharge date: 11/12/20 HPI HPI: Mr. Mckeon is a 65-year-old male patient with a history of CVA in 2013, hypertension, allergic rhinitis, hiatal hernia, vitamin B12 deficiency, and previous tobacco use disorder, and COPD who presented to [facility] emergency room via EMS after experiencing dizziness associated with nausea and vomiting at home. Patient states he was awake at 2 AM at which time he became dizzy. He states he has these spells infrequently. They normally last 2 to 3 minutes. This event continued and thus he called EMS. When ambulating to let them into his home he experienced nausea and did vomit. He denies chest pain and shortness of breath. In the emergency room he received a liter of IV fluids. He also received 4 mg of Zofran in route to the hospital. He had a CTA of the head with the following results: IMPRESSION: 1. 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 Above this, the more distal aspect near the basilar artery reconstitutes via collateral flow from what appears to be the anterior inferior cerebellar artery. 2. Atherosclerotic calcifications within both carotid bulbs and proximal ICA's resulting in less than 50% stenosis. 3. Mild centrilobular emphysema and dependent atelectasis in the lung apices. Chest x-ray showed no acute findings. Troponin I is negative x2. Electrolytes are normal and kidney function is good. At the time of this exam patient is lying on his side comfortably. He states as long as he lies down he is not dizzy. He turns from side to side on the stretcher without dizziness as well. Patient was noted to have a slow heart rate with dizziness and will thus be admitted with a cardiology consult. Hospital Course Hospital Course: The patient was admitted with a cardiology consult and was placed on telemetry. His blood pressure medication was held and his blood pressure was monitored as he had been hypotensive. Dr. Burr felt the patient's symptoms sounded neurologic in origin as he had had episodes of weakness of the right hand and arm as well as the right leg and he had atherosclerotic changes on his CTA. Cardiology saw the patient. They felt his dizziness may have been caused from hypotension. They felt his blood pressure medication needed to be adjusted. He did have some bradycardia with heart rates in the 50s. They felt he might benefit from an event monitor being placed prior to discharge home. There were no plans for invasive cardiac testing as he had ruled out for an CO. They did order an echo. Dr. Hendricks discussed the findings on the patient's imaging with the radiologist and MALCOM could not be ruled out, therefore they ordered an MRA of the head and neck with and without contrast. The patient was unable to undergo MRI due to his claustrophobia. He was offered antianxiety medicine to complete the test, but refused to have the test completed. By 11/12/2020, he felt much better and wanted to go home. He denied any recurrence of his dizziness. His echo showed mild left ventricular hypertrophy with an EF of 55%. There was a thickened and calcified aortic valve with mild aortic stenosis. It was felt by cardiology that he would need aggressive blood pressure control in case he truly did have VBI and because of his vertebral artery occlusion. They increased his lisinopril to 40 mg. Cardiology felt he could be discharged home once he had a renal duplex obtained. They did recommend he go home on a baby aspirin as well as Lipitor 40 mg daily. His renal artery duplex showed greater than 60% stenosis of the bilateral renal arteries. The patient was discharged home on Eliquis and will follow up with both cardiology and with neurology. Objective Vital signs: Temp Pulse Resp BP Pulse Ox 98 F 66 18 157/69 H 98
== END 2020-11-12 10:25 | disposition home or self-care (01) ==
LOC: ER 07:00 → 2ND 08:06
PROVIDERS: Nurse Practitioner Family; Admitting Provider Family Medicine; Emergency Provider Emergency Medicine; PCP Family Medicine; Visit Provider Family Medicine
DX: J01.90 Acute sinusitis, unspecified (principal); R00.1 Bradycardia, unspecified; R42 Dizziness and giddiness; Z86.73 Personal history of transient ischemic attack (TIA), and cerebral infarction without residual deficits; I10 Essential (primary) hypertension; J30.9 Allergic rhinitis, unspecified; Z87.891 Personal history of nicotine dependence; J44.9 Chronic obstructive pulmonary disease, unspecified; J32.8 Other chronic sinusitis; I95.9 Hypotension, unspecified; G45.0 Vertebro-basilar artery syndrome
CPT/HCPCS: 36415; 70450; 70496; 70498; 71045; 80048; 80053; 80061; 81001; 83605; 83735; 84145; 84484; 85025; 85651; 86140; 87040; 93005; 93306; 93976; 96365; 99285; G0378; Q9967; U0003

== ENCOUNTER → 2020-12-24 13:50 | Outpatient (CLI) | payer BC, SELFPAY | PROVIDERS: Visit Provider Physician Assistant | DX: Z01.812 Encounter for preprocedural laboratory examination (principal); Z11.52 Encounter for screening for COVID-19; I70.1 Atherosclerosis of renal artery | CPT/HCPCS: 36415; U0003 ==

== ENCOUNTER 2020-12-25 08:17 | Day surgery (SDC) | payer BC, SELFPAY ==
[2020-12-25] VITALS (23 sets, daily range): BP systolic 105–137; BP diastolic 47–110; PULSE 60–87; RESP 13–18; TEMP 36.8; O2SAT 92–98; BMI 40.6
--- NOTE | 2020-12-25 | IR_ITS ---
APPROVED REPORT Patient Location: Outpatient Auto Driver: MINI Carcamo RT (R) PROCEDURES Bilateral selective renal angiography INDICATION Bilateral abnormal renal duplex Informed consent was obtained prior to the procedure. COMPLICATIONS None Estimated Blood Loss: Less than 10 mls TECHNIQUE 1% lidocaine used to anesthetize the right femoral groin. The right femoral artery was accessed via the Seldinger technique. A 4 [place] sheath was placed in the right femoral artery. The JR4 catheter was used to selectively intubate each renal artery. At the end of the diagnostic angiogram the patient was transferred to the postop holding area in stable condition for sheath removal. ANGIOGRAPHIC RESULTS Right renal artery singular normal Left renal artery singular normal IMPRESSION Normal renal arteries PLAN 1. Evaluation of non-renovascular hypertension Electronically signed by : Stephen Hendricks MD 12/25/2020 10:47:56
[2020-12-25 09:04] LABS: Basophils # 0.1 K/mm3 (0-0.2); Basophils % 0.6 % (0.1-2.0); Eosinophils # 0.3 K/mm3 (0.0-0.4); Eosinophils % 2.8 % (0.1-12.0); Hematocrit 43.9 % (42.0-52.0); Hemoglobin 14.8 g/dL (14.1-18.0); Lymphocytes # 2.5 K/mm3 (0.7-4.5); Lymphocytes % 27.9 % (10-50); Mean Corpuscular HGB Conc 33.7 g/dL (31.8-35.4); Mean Corpuscular Hemoglobin 30.9 pg (27.0-31.2); Mean Corpuscular Volume 91.6 fl (80-94); Mean Platelet Volume 8.1 fl (7.4-10.4); Monocytes # 0.5 K/mm3 (0.1-1.0); Neutrophils # 5.8 K/mm3 (1.8-7.8); Neutrophils % 63.7 % (37.0-80.0); Platelet Count 286 K/mm3 (142-424); Red Blood Count 4.79 M/mm3 (4.60-6.20); Red Cell Distribution Width 13.2 % (11.5-17.5); White Blood Count 9.1 K/mm3 (4.8-10.8)
[2020-12-25 09:18] LABS: Anion Gap 11.8 mEq/L (5-15); Blood Urea Nitrogen 16 mg/dl (9-20); Calcium 9.1 mg/dl (8.4-10.2); Carbon Dioxide 28 mmol/L (22.0-30.0); Chloride 103 mmol/L (98-107); Creatinine Clearance Estimated 138 mL/min (50-200); Estimated Glomerular Filt Rate 75 ml/min (>60); GFR (African American) 90 ML/MIN (>60); Glucose 109 mg/dl (74-100); Potassium 3.8 mmoL/L (3.5-5.1); Sodium 139 mmol/L (136-145)
== END 2020-12-25 14:07 | disposition home or self-care (01) ==
LOC: CATHLAB 08:20
PROVIDERS: PCP Family Medicine; Visit Provider Internal Medicine
DX: I70.1 Atherosclerosis of renal artery (principal); G45.0 Vertebro-basilar artery syndrome; E66.01 Morbid (severe) obesity due to excess calories; Z68.41 Body mass index [BMI] 40.0-44.9, adult; I25.10 Atherosclerotic heart disease of native coronary artery without angina pectoris; I48.91 Unspecified atrial fibrillation; I10 Essential (primary) hypertension; I35.0 Nonrheumatic aortic (valve) stenosis; Z79.899 Other long term (current) drug therapy
CPT/HCPCS: 36252; 80048; 85025; 99152; C1725; C1769; J1644; Q9967